=== PATIENT | male | born 1950 | race Caucasian/White ===

== ENCOUNTER 2020-07-14 14:09 | Emergency (ER) | payer MEDICARE ==
--- NOTE | 2020-07-14 14:58 | EDM.PDOC ---
ED HPI GENERAL MEDICAL PROBLEM - General Chief Complaint: ENT Problem Stated Complaint: ABCESS TOOTH Time Seen by Provider: 07/14/20 14:40 Source of Information: Reports: Patient History Limitations: Reports: No Limitations - History of Present Illness INITIAL COMMENTS - FREE TEXT/NARRATIVE: 70-year-old male with significant right upper dental pain for the past week, did see the dentist last week and has a recheck appointment with them tomorrow. He is on antibiotics, got a temporary filling behind his right upper canine, but the pain is persistent. No significant swelling. Onset: Gradual Duration: Week(s): (Problems for the last 2 weeks) Location: Reports: Other (Right upper canine) - Related Data Allergies Allergy/AdvReac Type Severity Reaction Status Date / Time No Known Allergies Allergy Verified 07/14/20 14:44 Home Meds: Home Meds Gabapentin [Neurontin] 1 tab PO QID 07/14/20 [History] QUEtiapine [SEROquel] 1 tab PO BEDTIME 07/14/20 [History] Past Medical History - Past Surgical History GI Surgical History: Reports: Appendectomy Social & Family History - Tobacco Use Tobacco Use Status *Q: Current Every Day Tobacco User Years of Tobacco use: 40 Packs/Tins Daily: 1 ED ROS ENT - Review of Systems Review Of Systems: See Below Constitutional: Denies: Fever, Chills HEENT: Reports: Dental Pain Respiratory: Denies: Shortness of Breath, Cough Cardiovascular: Denies: Chest Pain GI/Abdominal: Reports: No Symptoms Skin: Reports: No Symptoms Neurological: Denies: Headache Psychiatric: Reports: No Symptoms ED EXAM, ENT - Physical Exam Exam: See Below Exam Limited By: No Limitations General Appearance: Alert, No Apparent Distress Mouth/Throat: Other (Right maxillary canine shows recent dental work and a temporary filling behind a large caries. The area is tender to percussion. No significant gingival erythema or edema) Head: Atraumatic Respiratory/Chest: No Respiratory Distress Neurological: Alert, Oriented Course - Vital Signs Last Recorded V/S: Last Vital Signs Temp 97.5 F 07/14/20 14:51 Pulse 84 07/14/20 14:51 Resp 14 07/14/20 14:51 BP 153/97 H 07/14/20 14:51 Pulse Ox 96 07/14/20 14:51 - Re-Assessments/Exams Free Text/Narrative Re-Assessment/Exam: 07/14/20 19:09 Patient will continue his antibiotics, he was given 10 additional Percocet for pain control. I did a [employer] search on him for not only [place] but [place] and there is not past prescriptions that were filled. Departure - Departure Time of Disposition: 15:06 Disposition: Home, Self-Care 01 Clinical Impression: Dental caries - Discharge Information Instructions: Dental Abscess, [id number] Referrals: PCP,None [Primary Care Provider] - Forms: ED Department Discharge Care Plan Goals: Continue with antibiotic, use ibuprofen along with stronger pain medication as prescribed and recheck tomorrow as scheduled. Sepsis Event Note (ED) - Evaluation Sepsis Screening Result: No Definite Risk - Focused Exam Vital Signs: Vital Signs Temp Pulse Resp BP Pulse Ox 07/14/20 14:51 97.5 F 84 14 153/97 H 96
== END 2020-07-14 15:09 | disposition home or self-care (01) ==
LOC: JP.ED 14:09
DX: K02.9 Dental caries, unspecified (principal); Z72.0 Tobacco use
CPT/HCPCS: 99282